=== PATIENT | female | born 1930 | race Caucasian/White ===

== ENCOUNTER 2018-11-04 12:26 | Emergency (ER) | payer OTHER ==
--- OUTSIDE RECORDS SUMMARY | 2018-11-04 12:29 | XMS REPORT | Clinical Summary ---
:1930 Author Organization [facility] Address [address] [place] [address] Care Team Providers Name Role Phone Patrick Lockhart Primary Care Provider Allergies Active Allergy Reactions Severity Noted Date Comments Ibuprofen Rash Low 10/27/2016 Sulfa (Sulfonamide Antibiotics) Rash Medium 10/27/2016 Medications Medication Sig Dispensed Refills Start Date End Date Status atorvastatin (LIPITOR) Take 20 mg by 0 Active 10 MG tablet mouth daily Takes daily at lunch. . amLODIPine (NORVASC) 10 Take 10 mg by 0 Active MG tablet mouth daily. metoprolol (TOPROL-XL) Take 25 mg by 0 Active 25 MG 24 hr tablet mouth daily. warfarin (COUMADIN) 1 MG Take 3 mg by 0 Active tablet mouth daily. Active Problems Problem Noted Date Moderate protein malnutrition 11/04/2016 Thrombocytopenia 10/28/2016 Hypokalemia 10/28/2016 PAD (peripheral artery disease) 10/27/2016 Acute leg pain, right 10/27/2016 Embolus of femoral artery 10/27/2016 Overview: Subacute, likely 6 days ago - RIGHT SFA Chronic atrial fibrillation 10/27/2016 Social History Tobacco Use Types Packs/Day Years Used Date Never Smoker Sex Assigned at Date Recorded Not on file Job Start Date Occupation Industry Not on file Not on file Not on file Travel History Travel Start Travel End No recent travel history available. Last Filed Vital Signs Not on file Plan of Treatment Not on file Results Not on fileafter 11/03/2017 Insurance Payer Benefit Plan / Group Subscriber ID Type Phone Address MEDICARE MEDICARE A B xxxxxxxxxx Medicare Advance Directives For more information, please contact:[address] [phone] Code Status Date Activated Date Inactivated Comments Full Code 10/27/2016 7:08 PM 10/29/2016 7:28 PM This code status was determined by: Patient
[2018-11-04 13:31] LABS: Absolute Lymphocytes (CBC) 0.6 K/uL (0.7-4.9); Absolute Monocytes 0.5 K/uL (0.1-1.3); Absolute Neutrophil 4.6 K/uL (1.8-8.0); Basophils % 0.6 % (0-1.3); Eosinophils % 1.5 % (0-4.4); Hematocrit 40.5 % (36.0-45.0); Lymphocytes % 10.4 % (15.3-44.8); MCV 90.4 fL (80-100); MPV 9.3 fL (7.6-11.3); Monocytes % 8.5 % (3.3-12.3); Protime INR 1.24; RBC Red Blood Cell Count 4.48 M/uL (3.86-4.86)
[2018-11-04 13:47] LABS: ALT/SGPT 24 U/L (12-78); AST/SGOT 21 U/L (15-37); Alkaline Phosphatase 100 U/L (45-117); BUN Blood Urea Nitrogen 12 mg/dL (7-18); Bicarbonate 28 mmol/L (21-32); Bilirubin Direct 0.2 mg/dL (0-0.2); Bilirubin Total 0.7 mg/dL (0.2-1.0); Glucose Level 125 mg/dL (74-106); Potassium 3.6 mmol/L (3.5-5.1); Sodium Level 139 mmol/L (136-145)
[2018-11-04 13:48] LABS: Albumin 3.6 g/dL (3.4-5.0); Lipase 113 U/L (73-393); Magnesium 2.2 mg/dL (1.8-2.4); NT PRO-BNP 987 pg/mL (<450); Protein, Total 7.1 g/dL (6.4-8.2); Troponin (Emerg Dept Use Only) < 0.02 ng/mL (0.0-0.045)
--- NOTE | 2018-11-04 13:50 | RAD REPORT ---
EXAM DESCRIPTION: Lauren Single View11/04/2018 1:27 pm CLINICAL HISTORY: Chest pain COMPARISON: October 2018 FINDINGS: The lungs are hyperaerated. The lungs appear clear of acute infiltrate. The heart is mildly enlarged IMPRESSION: No acute abnormalities displayed
--- NOTE | 2018-11-04 15:34 | ER ---
Nurse's Notes [facility] Name: Kesha Sandoval Age: 88 yrs Sex: Female : 1930 Arrival Date: 11/04/2018 Time: 12:30 Bed 18 Private MD: Diagnosis: Epigastric pain Presentation: 11/04 12:31 Presenting complaint: Patient states: midsternal chest pain started today. c/o SOB, dry sv mouth. Transition of care: patient was not received from another setting of care. Onset of symptoms was November 04, 2018. Care prior to arrival: None. 12:31 Method Of Arrival: Wheelchair sv 12:31 Acuity: MARKEL 3 sv 15:59 Risk Assessment: Do you want to hurt yourself or someone else? Patient reports no bp desire to harm self or others. Initial Sepsis Screen: Does the patient meet any 2 criteria? No. Patient's initial sepsis screen is negative. Does the patient have a suspected source of infection? No. Patient's initial sepsis screen is negative. Triage Assessment: 12:31 General: Appears in no apparent distress. uncomfortable, slender, Behavior is calm, sv cooperative. Pain: Complains of pain in mid-sternal area. Neuro: Level of Consciousness is awake, alert, obeys commands, Oriented to person, place, time, situation, Moves all extremities. Respiratory: Respiratory effort is even, unlabored, Respiratory pattern is regular, symmetrical. Historical: - Allergies: 12:31 Ibuprofen; sv 12:31 Sulfa (Sulfonamide Antibiotics); sv - PMHx: 12:31 AFIB; Hypertension; sv 12:33 CVA; sv - PSHx: 12:31 cataract surgery; Hysterectomy; cardiac cath; sv - Immunization history:: Adult Immunizations. - Social history:: The patient lives at home, Smoking status: Patient/guardian denies using tobacco. - Ebola Screening: : Patient denies exposure to infectious person Patient denies travel to an Ebola-affected area in the 21 days before illness onset No symptoms or risks identified at this time. Screenin:58 Abuse screen: Denies threats or abuse. Denies injuries from another. Nutritional bp screening: No deficits noted. Tuberculosis screening: No symptoms or risk factors identified. Fall Risk None identified. Assessment: 13:00 General: Appears in no apparent distress. comfortable, slender, Behavior is calm, bp cooperative, appropriate for age. Pain: Denies pain. Neuro: Level of Consciousness is awake, alert, obeys commands, Oriented to person, place, time, situation, Appropriate for age. Cardiovascular: Rhythm is sinus rhythm. Respiratory: Airway is patent Respiratory effort is even, unlabored, Respiratory pattern is regular, symmetrical. GI: No signs and/or symptoms were reported involving the gastrointestinal system. : No signs and/or symptoms were reported regarding the genitourinary system. EENT: No deficits noted. Derm: No deficits noted. Musculoskeletal: Circulation, motion, and sensation intact. Range of motion: intact in all extremities. 14:00 Reassessment: ALL CURRENT ORDERS COMPLETED, VS STABLE, DISPO PENDING. bp 15:00 Reassessment: REPEAT TROP PENDING, NO ACUTE S/S AT THIS TIME. bp 15:56 Reassessment: PT D/C HOME AMBULATORY WITH FAMILY, DX WITH EPIGASTRIC PAIN. bp Vital Signs: 12:33 BP 121 / 46; Pulse 49; Resp 18; Temp 97.7; Pulse Ox 97% ; Weight 51.71 kg; Height 5 ft. sv 5 in. (165.10 cm); 14:00 BP 133 / 61; Pulse 65; Resp 16; Pulse Ox 98% ; bp 15:06 BP 165 / 59; Pulse 86; Resp 18; Pulse Ox 98% on R/A; mh5 16:05 BP 143 / 65; Pulse 85; Resp 14; Pulse Ox 98% ; bp 12:33 Body Mass Index 18.97 (51.71 kg, 165.10 cm) sv ED Course: 12:30 Patient arrived in ED. rg4 12:33 Triage completed. sv 12:35 Arm band placed on. sv 12:41 Ace Bose MD is Attending Physician. gs 12:42 Jesus Parkinson, RN is Primary Nurse. bp 12:58 Patient has correct armband on for positive identification. Bed in low position. Call bp light in reach. Side rails up X2. Adult w/ patient. 13:13 EKG done, by emissions repair technician. reviewed by Ace Bose MD. at1 13:21 Inserted saline lock: 22 gauge in right forearm, using aseptic technique. Blood bp collected. 13:28 XRAY Chest (1 view) In Process Unspecified. EDMS 15:57 No provider procedures requiring assistance completed. IV discontinued, intact, bp bleeding controlled, No redness/swelling at site. Pressure dressing applied. Administered Medications: 15:56 Not Given (Patient Refused): Zofran 4 mg IVP once; over 2 minutes bp Outcome: 15:33 Discharge ordered by . patricia 15:57 Discharged to home ambulatory, with family. bp 15:57 Condition: stable 15:57 Discharge instructions given to patient, family, Instructed on discharge instructions, follow up and referral plans. Demonstrated understanding of instructions, follow-up care. 16:05 Patient left the ED. bp Signatures: Dispatcher [employer] EDMS Audrey Bustillos RN RN sv Leonor Joseph, mica washer gluer EKG Tat1 Katalina Marquis 4 Yeimy Louise 5 Ace Bose MD MD gs Peltier, Brian RN RN bp Corrections: (The following items were deleted from the chart) 13:23 13:21 General: Appears bp bp
--- NOTE | 2018-11-04 15:34 | EDPHYS ---
Physician Documentation [facility] Name: Kesha Sandoval Age: 88 yrs Sex: Female : 1930 Arrival Date: 11/04/2018 Time: 12:30 Bed 18 Private MD: ED Physician Ace Bose HPI: 11/04 15:28 This 88 yrs old Female presents to ER via Wheelchair with complaints of gs Doesn't Feel Right. 15:28 The patient presents to the emergency department with nausea. Onset: The gs symptoms/episode began/occurred 1 hour(s) ago. Possible causes: unknown. The symptoms are aggravated by nothing. The symptoms are alleviated by nothing. Associated signs and symptoms: Pertinent positives: abdominal pain, epigastric. Severity of symptoms: At their worst the symptoms were moderate in the emergency department the symptoms have improved moderately. The patient has experienced similar episodes in the past, a few times. The patient has not recently seen a physician. Historical: - Allergies: 12:31 Ibuprofen; sv 12:31 Sulfa (Sulfonamide Antibiotics); sv - PMHx: 12:31 AFIB; Hypertension; sv 12:33 CVA; sv - PSHx: 12:31 cataract surgery; Hysterectomy; cardiac cath; sv - Immunization history:: Adult Immunizations. - Social history:: The patient lives at home, Smoking status: Patient/guardian denies using tobacco. - Ebola Screening: : Patient denies exposure to infectious person Patient denies travel to an Ebola-affected area in the 21 days before illness onset No symptoms or risks identified at this time. ROS: 15:28 All other systems are negative. gs Exam: 15:28 Head/Face: Normocephalic, atraumatic. Eyes: Pupils equal round and reactive to light, gs extra-ocular motions intact. Lids and lashes normal. Conjunctiva and sclera are non-icteric and not injected. Cornea within normal limits. Periorbital areas with no swelling, redness, or edema. ENT: Nares patent. No nasal discharge, no septal abnormalities noted. Tympanic membranes are normal and external auditory canals are clear. Oropharynx with no redness, swelling, or masses, exudates, or evidence of obstruction, uvula midline. Mucous membranes moist. Neck: Trachea midline, no thyromegaly or masses palpated, and no cervical lymphadenopathy. Supple, full range of motion without nuchal rigidity, or vertebral point tenderness. No Meningismus. Chest/axilla: Normal chest wall appearance and motion. Nontender with no deformity. No lesions are appreciated. Respiratory: Lungs have equal breath sounds bilaterally, clear to auscultation and percussion. No rales, rhonchi or wheezes noted. No increased work of breathing, no retractions or nasal flaring. Abdomen/GI: Soft, non-tender, with normal bowel sounds. No distension or tympany. No guarding or rebound. No evidence of tenderness throughout. Back: No spinal tenderness. No costovertebral tenderness. Full range of motion. Skin: Warm, dry with normal turgor. Normal color with no rashes, no lesions, and no evidence of cellulitis. MS/ Extremity: Pulses equal, no cyanosis. Neurovascular intact. Full, normal range of motion. Neuro: Awake and alert, GCS 15, oriented to person, place, time, and situation. Cranial nerves II-XII grossly intact. Motor strength 5/5 in all extremities. Sensory grossly intact. Cerebellar exam normal. Normal gait. 15:28 Constitutional: The patient appears alert, awake. 15:28 Cardiovascular: Rate: normal, Rhythm: irregularly irregular, Pulses: no pulse deficits are appreciated, Heart sounds: normal, Edema: is not appreciated. 15:28 ECG was reviewed by the Attending Physician. Vital Signs: 12:33 BP 121 / 46; Pulse 49; Resp 18; Temp 97.7; Pulse Ox 97% ; Weight 51.71 kg; Height 5 ft. sv 5 in. (165.10 cm); 14:00 BP 133 / 61; Pulse 65; Resp 16; Pulse Ox 98% ; bp 15:06 BP 165 / 59; Pulse 86; Resp 18; Pulse Ox 98% on R/A; mh5 16:05 BP 143 / 65; Pulse 85; Resp 14; Pulse Ox 98% ; bp 12:33 Body Mass Index 18.97 (51.71 kg, 165.10 cm) sv MDM: 13:00 Patient medically screened. 15:28 Differential diagnosis: viral gastroenteritis, gastroenteritis, gerd,mi. Data reviewed: vital signs, nurses notes. Response to treatment: the patient's symptoms have resolved after treatment, and as a result, I will discharge patient. 11/04 13:02 Order name: Basic Metabolic Panel; Complete Time: 14:19 gs 11/04 13:02 Order name: CBC with Diff; Complete Time: 14:19 gs 11/04 13:02 Order name: LFT's; Complete Time: 14:19 gs 11/04 13:02 Order name: Magnesium; Complete Time: 14:19 gs 11/04 13:02 Order name: NT PRO-BNP; Complete Time: 14:19 gs 11/04 13:02 Order name: PT-INR; Complete Time: 14:28 gs 11/04 12:38 Order name: EKG; Complete Time: 12:39 sv 11/04 12:38 Order name: EKG - Nurse/Tech; Complete Time: 13:00 sv 11/04 13:02 Order name: Troponin (emerg Dept Use Only); Complete Time: 14:19 gs 11/04 13:02 Order name: XRAY Chest (1 view); Complete Time: 14:19 gs 11/04 13:02 Order name: Cardiac monitoring; Complete Time: 13:20 gs 11/04 13:02 Order name: Lipase; Complete Time: 14:19 gs 11/04 14:33 Order name: Troponin (emerg Dept Use Only); Complete Time: 15:25 gs 11/04 13:02 Order name: IV Saline Lock; Complete Time: 13:20 gs 11/04 13:02 Order name: Labs collected and sent; Complete Time: 13:20 gs 11/04 13:02 Order name: O2 Per Protocol; Complete Time: 13:21 gs 11/04 13:02 Order name: O2 Sat Monitoring; Complete Time: 13:21 gs EC:28 Rate is 77 beats/min. Rhythm is irregular. T waves are Flattened. Clinical impression: gs Atrial Fibrillation. Interpreted by me. Administered Medications: 15:56 Not Given (Patient Refused): Zofran 4 mg IVP once; over 2 minutes bp Disposition: 11/04/18 15:33 Discharged to Home. Impression: Epigastric pain. - Condition is Stable. - Discharge Instructions: Abdominal Pain, Adult, Gastroesophageal Reflux Disease, Adult, [id number]. - Medication Reconciliation Form, Thank You Letter, Antibiotic Education, Prescription Opioid Use form. - Follow up: Private Physician; When: 2 - 3 days; Reason: Re-evaluation by your physician. Signatures: Dispatcher [employer] Audrey Reis, RN RN sv Ace Bose MD MD gs Peltier, Brian RN RN bp Corrections: (The following items were deleted from the chart) 16:05 15:33 11/04/2018 15:33 Discharged to Home. Impression: Epigastric pain. Condition is bp Stable. Forms are Medication Reconciliation Form, Thank You Letter, Antibiotic Education, Prescription Opioid Use. Follow up: Private Physician; When: 2 - 3 days; Reason: Re-evaluation by your physician. gs
--- NOTE | 2018-11-04 22:41 | EKG ---
Test Date: 2018-11-04 Test Time: 13:03:30 Civil Rights Attorney: MJ MEASUREMENT RESULTS: Intervals: Rate: 77 MS: QRSD: 106 QT: 406 QTc: 459 [place]: P: MS: QRS: 64 T: 260 INTERPRETIVE STATEMENTS: Atrial fibrillation ST & T wave abnormality, consider inferolateral ischemia or digitalis effect Abnormal ECG Compared to ECG 10/27/2016 10:39:24 Ventricular premature complex(es) no longer present ST (T wave) deviation still present Possible ischemia still present Electronically Signed On 11-04-18 22:40:18 SURFACE BOSS by Patrick Lockhart
== END 2018-11-04 16:05 | disposition home or self-care (01) ==
LOC: ER 12:26
DX: I48.91 Unspecified atrial fibrillation (principal); R10.13 Epigastric pain; R94.31 Abnormal electrocardiogram [ECG] [EKG]
CPT/HCPCS: 36415; 71045; 80048; 80076; 83690; 83735; 83880; 84484; 85025; 85610; 93005; 99284